=== PATIENT | male | born 1975 | race Caucasian/White ===

== ENCOUNTER 2018-07-07 08:45 | Day surgery (SDC) | payer BC ==
[~2018-07-07] VITALS: Ht 175.3 cm; Wt 122.5 kg
[~2018-07-07 08:45] MED LIST: CEFAZOLIN 1 GM IVPB PREMIX 50 ML IV ONE
[2018-07-07] MEDS ORDERED: D5/0.45 NS 1,000 ML IV SCH (13:08)
[2018-07-07] MEDS ORDERED: HYDROcodone/ACETAMIN 5-325 MG TAB (NORCO/ VICODIN) PO PRN ×2 (13:15)
[2018-07-07] MEDS ORDERED: HYDROmorphone 1 MG INJ. 1 MG/ML AMPUL IVP PRN (13:15)
[2018-07-07 14:30] VITALS: BP_SYST 116
== END 2018-07-07 15:40 | disposition home or self-care (01) ==
LOC: SDS 08:45 → SMU 08:45 → SDS 15:40
PROVIDERS: ATTEND Colon & Rectal Surgery
DX: K60.3 Anal fistula (principal); E66.01 Morbid (severe) obesity due to excess calories; K76.0 Fatty (change of) liver, not elsewhere classified; Z68.41 Body mass index [BMI] 40.0-44.9, adult; E55.9 Vitamin D deficiency, unspecified; Z98.890 Other specified postprocedural states; Z87.891 Personal history of nicotine dependence; Z79.899 Other long term (current) drug therapy
CPT/HCPCS: 46275; J0690